=== PATIENT | female | born 2000 | race Caucasian/White ===

== ENCOUNTER → 2024-06-18 18:11 | Outpatient (REF) | payer BC, SELFPAY | LOC: PAVMRI 18:11 | PROVIDERS: ATTENDING PHYSICIAN Internal Medicine | DX: G43.009 Migraine without aura, not intractable, without status migrainosus (principal); M54.2 Cervicalgia; R29.898 Other symptoms and signs involving the musculoskeletal system | CPT/HCPCS: 70551; 72141 ==